=== PATIENT | female | born 1955 | race American Indian/Alaskan Native ===

== ENCOUNTER 2017-09-04 09:52 | Day surgery (SDC) | payer MEDICAID ==
[2017-08-31 11:09] VITALS: BMI 28.3
[2017-09-04] MEDS ORDERED: Oxycodone/Acetaminophen 5/325 mg Tab PO PRN ×2 (13:12→14:36)
[2017-09-04] MEDS ORDERED: Lidocaine 1% Inj (20ml) ONE (13:36)
[2017-09-04] MEDS ORDERED: Bupivacaine HCl 0.5% PF (10 ml) Inj ONE (13:36)
[2017-09-04] MEDS ORDERED: ceFAZolin IV 1 gm in Dextrose 0 GM/0 ML BAG IVPB ONE (13:38)
[2017-09-04] MEDS ORDERED: Midazolam 2 MG/2 ML VIAL ONE ×2 (14:00→14:10)
[2017-09-04] MEDS ORDERED: Propofol 10 mg/ml Inj (20 ML) ONE (14:00)
[2017-09-04] MEDS ORDERED: Lactated Ringer's 1,000 ML IV ONE (14:02)
[2017-09-04] MEDS ORDERED: Doxycycline 100 mg Inj ONE (14:06)
[2017-09-04] MEDS ORDERED: HYDROmorphone 0.5 mg/0.5 ml ISec IVP PRN (14:36)
[2017-09-04] MEDS ORDERED: Lactated Ringer's 1,000 ML IV SCH (14:45)
[2017-09-04 16:23] VITALS: RESP 16
[2017-09-04 16:51] VITALS: BP 156/66; PULSE 75; TEMP 97.2; O2SAT 98
--- NOTE | 2017-09-05 01:55 | OP ---
PROCEDURE DATE: 09/04/2017 PREOPERATIVE DIAGNOSIS: Abdominal wall mass. POSTOPERATIVE DIAGNOSIS: Abdominal wall mass. PROCEDURE PERFORMED: Wide and deep excision of 5 cm of abdominal wall mass with adjacent tissue transfer closure. SURGEON: Valente García MD ANESTHESIA: General. BLOOD LOSS: 40 mL. POSTOPERATIVE CONDITION: Stable. PROCEDURE: The patient taken to the operating room and placed in the supine position. A 5-cm left lower quadrant abdominal mass was marked and the abdomen was then prepped and draped. A generous elliptical incision was made surrounding the mass, which was dissected into the fascial layer and removed. Bleeding was controlled using the Bovie. The bleeding abdominal wall vessel was repaired and wound was irrigated with copious amounts of saline solution. A full-thickness tissue flap was raised including skin, subcutaneous tissue, fascia and muscle and an advancement flap closure was performed after counter incisions were made. Approximately 46 cm2 of an open wound was repaired. Wound was irrigated with saline and skin was closed with shreya. Patient tolerated the procedure well and returned to the recovery room in stable condition. Valente García MD
== END 2017-09-04 16:46 | disposition home or self-care (01) ==
LOC: C.SDS 09:52 → C.OPSURG 09:52
PROVIDERS: ATTEND Surgery
DX: D17.1 Benign lipomatous neoplasm of skin and subcutaneous tissue of trunk (principal); I10 Essential (primary) hypertension; E11.9 Type 2 diabetes mellitus without complications
CPT/HCPCS: 14000; 22903; 82948; 88307; J2250; J2704; J3010; J7120